=== PATIENT | female | born 1950 | race Caucasian/White ===

== ENCOUNTER → 2017-03-27 17:10 | Outpatient (CLI) | payer MEDICARE, BC, OTHER ==
[2013-10-16 10:24] VITALS: BMI 35.3
[~2017-03-27 17:10] MED LIST: CARAFATE1 G/10 ML PO; CRESTOR10 MG PO; ESTRACE1 MG PO; HYDROCODONE-APA1 TAB PO; NUCYNTA50 MG PO; PHENERGAN25 M1 PO; PROTONIX40 MG PO; SOMA350 MG PO; TOPROL XL25 MG PO; VITAMIN B-1000 MCG/M IM
== END | disposition home or self-care (01) ==
LOC: D.MAMMO 09:30
DX: Z12.31 Encounter for screening mammogram for malignant neoplasm of breast (principal)

== ENCOUNTER → 2018-04-02 18:42 | Outpatient (CLI) | payer MEDICARE, BC, OTHER ==
[2013-10-16 10:24] VITALS: BMI 35.3
== END | disposition home or self-care (01) ==
LOC: D.MAMMO 11:30
DX: Z12.31 Encounter for screening mammogram for malignant neoplasm of breast (principal)

== ENCOUNTER 2018-05-20 05:51 | Day surgery (SDC) | payer OTHER ==
[~2018-05-20] VITALS: Ht 170.2 cm; Wt 96.4 kg
--- NOTE | ~2018-05-20 | OP ---
PATIENT NAME: BEN REILLY MEDICAL RECORD: [id number] :48 LOCATION:[facility] ADMISSION DATE: SURGEON: RACHELE ANTHONY MD DATE OF OPERATION: 05/20/2018 PROCEDURE: EGD with balloon dilatation, EGD with biopsy. SCOPE: Olympus video gastroscope and a CRE Microvasive balloon from 45-60 Spanish. MEDICATIONS: Per TIVA anesthesia. The patient received 300 mg of propofol for this procedure, O2 4 liters. INDICATION FOR THE PROCEDURE: Unspecified anemia and dysphagia. FINDINGS AND DESCRIPTION OF PROCEDURE: Informed consent was given. The patient was made comfortable with the above medications. After reaching an adequate level of sedation by slow IV push, the patient was placed on her left side. The endoscope was then advanced under direct visualization through the posterior pharyngeal area and advanced to the distal esophagus. The patient did have some bilious-appearing fluid in the distal esophageal area, which was quickly suctioned, which is evidence that she does reflux. She did not have any of this fluid in her oropharyngeal area at the time of the procedure. She did have copious amount of secretions; however, which appears to be saliva. On entering the gastric pouch, very friable, slightly hemorrhagic mucosa was immediately noted and with insufflation of air, some slight amount of bleeding did occur. We did take a biopsy in this area and again we noted some heme as a result of obtaining the biopsy tissue. No ulcers or erosions were noted, although the patient as mentioned has hemorrhagic very friable tissue. We then advanced into the jejunum and mucosa was just minimally inflamed. The scope was then withdrawn. After the inspection part of the EGD was completed, we did place a CRE Microvasive balloon in the distal esophageal area to address the narrowing of this area and insufflated the balloon to 60-Spanish. We held it in place for 1 minute without any obvious complication. The scope was then withdrawn. IMPRESSION: 1. Distal esophageal stricture dilated to 60-Spanish without complication. 2. The patient was noted immediately. With advancement of the scope into the oropharyngeal area to have a copious amount of saliva. We did suction this 3 times during the procedure at the beginning after we dilated the patient and then at the end of the procedure. No bilious secretions were suctioned from the oropharyngeal area. 3. Erosive esophagitis, which is further evidence of the patient's refluxing problem. She does not appreciate this refluxing and I suspect it is due to the Protonix, which is decreasing acid production and increasing the pH. 4. Hemorrhagic bilious, very friable gastritis, biopsy taken within the gastric pouch looking for Helicobacter pylori. 5. Exploration of the jejunal tissue, which had minimal inflammation only. PLAN: 1. We are continuing Protonix as the patient certainly has a lot of friability and surface hemorrhage of the gastric mucosa; however, we would explain to the patient that this is a risk factor for both iron and calcium deficiency. 2. We will add Carafate and suggest that she make this into a slurry. She will need to avoid the a.m. dose as she is taking Synthroid and sucralfate/Carafate OPERATIVE REPORT [id number] MELBABEN Aponte does prevent the absorption of her thyroid medication. She will be instructed to take her Carafate at noon, dinnertime and bedtime. 3. We would prefer to use high dose famotidine or any other H2 eric over pantoprazole, but famotidine is known to decrease the absorption of tizanidine. Therefore, we will avoid from famotidine and stick with sucralfate at an adjusted dose and pantoprazole. 4. The patient is to follow reflux precautions stringently, both dietary and positional. She should avoid chocolate, tomato, citrus, caffeine, fatty food, peppermint. No tobacco, alcohol, have a heavier meal for breakfast and lunch and very minimal p.o. intake at dinnertime. She should sleep with the head of the bed elevated and not lay down at any time immediately after eating for up to 2 to 3 hours. TRANSINT:[id number] Voice Confirmation ID: [id number] DOCUMENT ID: [id number] RACHELE ANTHONY MD CC: SB MALDONADO DO [id number] DICTATION DATE: 05/20/18901 TECHNICIAN ANATOMIC PATHOLOGY: 05/20/18 113[address] [facility] 05/20/18 [id number] [place] [address]
[2018-05-20] MEDS ORDERED: ZANAFLEX4 MG PO (06:49)
[2018-05-20] MEDS ORDERED: ZOCOR10 MG PO (06:50)
[2018-05-20] MEDS ORDERED: SYNTHROID75 MCG PO (06:50)
[2018-05-20] MEDS ORDERED: TYLENOL PM1 TAB PO (06:50)
[2018-05-20] MEDS ORDERED: ACETAMINOPHEN500 M1 PO (06:51)
[2018-05-20 06:58] LABS: HEMATOCRIT 40.9 % (36.0-48.0); HEMOGLOBIN 13.5 g/dL (12-16); MCH 30.2 pg (26.0-34.0); MCV 91.5 fL (80.0-100.0); MEAN PLATELET VOLUME 9.4 fL (7.4-10.4); RBC 4.47 10x6/uL (4.00-5.40); RDW 13.6 % (11.5-14.5); WBC 6.5 10x3/uL (4.8-10.8)
[2018-05-20 07:02] VITALS: BP 118/74; Ht 170.2 cm; Wt 96.4 kg
--- NOTE | 2018-05-20 09:38 | NUR ---
DC INSTRUCTIONS GIVEN TO PT/FAMILY. STATE UNDERSTANDING. DC'D IV CATH FULLY INTACT.
--- NOTE | 2018-05-20 09:48 | NUR ---
PT LEFT UNIT VIA AT 3960
== END 2018-05-20 09:48 | disposition home or self-care (01) ==
LOC: D.OPS 05:51
PROVIDERS: Anesthesiology
DX: K22.10 Ulcer of esophagus without bleeding (principal); D64.9 Anemia, unspecified; K29.71 Gastritis, unspecified, with bleeding

== ENCOUNTER 2018-07-17 12:06 | Day surgery (SDC) | payer MEDICARE ==
[~2018-07-17] VITALS: Ht 167.6 cm; Wt 96.4 kg
--- NOTE | ~2018-07-17 | OP ---
PATIENT NAME: BEN REILLY MEDICAL RECORD: [id number] :48 LOCATION:[facility] ADMISSION DATE: SURGEON: CATALINA QUINTANILLA MD DATE OF OPERATION: 07/17/2018 PROCEDURE: Colonoscopy with biopsy. GAMING DEALER: Catalina Quintanilla MD SCOPE: Olympus video colonoscope. MEDICATIONS: Per TIVA anesthesia. The patient received 350 mg of propofol for this procedure, O2 4 liters. INDICATION FOR THE PROCEDURE: Anemia, change in bowel pattern, diarrhea and constipation, significant most likely for irritable bowel syndrome. FINDINGS: Informed consent was given. The patient was made comfortable with the above medications. After reaching an adequate level of sedation by slow IV push, the patient was placed on her left side. The rectal exam revealed good sphincter tone. No fissures or fistulas were appreciated. No external skin tags were seen. The colonoscope was advanced to the cecum where the ileocecal valve and appendiceal orifice were identified and photographed. On withdrawal of the scope, mucosa was carefully inspected. The patient had left-sided diverticulosis without diverticulitis, although a few diverticula were impacted with hard stool. No evidence of diverticulitis was noted, however. At 25 cm within the sigmoid colon, an area of inflammation was appreciated. Biopsies were obtained as well as documentation. Within the rectal vault, the patient had both internal and external hemorrhoids, which is the cause of the slight amount of bleeding that she noted while doing her preparation. Also seen was spasm on the left side of the colon significant for irritable bowel syndrome as well as bowel adhesions again in the pelvic area, which did add to the difficulty of this procedure. IMPRESSION: 1. Adhesions as mentioned above, mainly in the pelvic area. 2. Spasm on the left side of the colon significant for irritable bowel syndrome. 3. Inflammation within the distal sigmoid area at 25 cm. Biopsies obtained. We also took biopsies due to the history of diarrhea. 4. Cecum and ileocecal valve identified as well as the appendiceal orifice. 5. Left-sided diverticulosis without diverticulitis. PLAN: 1. No aspirin or anti-inflammatory drugs if possible for 14 days. 2. High fiber diet. 3. We will also caution the patient on eating nuts, seeds, and popcorn with her significant history of diverticulosis. No diverticulitis appreciated. For hemorrhoids, she can use [id number] cortisone cream 1% to the affected area b.i.d. and should avoid both diarrhea as well as constipation. We will provide her with some information on irritable bowel syndrome. TRANSINT:[id number] Voice Confirmation ID: [id number] DOCUMENT ID: [id number] OPERATIVE REPORT [id number] BEN REILLY BRENDA MD CC: SB MALDONADO DO [id number] DICTATION DATE: 07/17/[address] DRIVER: 07/17/18 [id number] [place] [address]
[~2018-07-17 12:06] MED LIST changes: +ACETAMINOPHEN500 M1 PO; +SYNTHROID75 MCG PO; +TYLENOL PM1 TAB PO; +ZANAFLEX4 MG PO; +ZOCOR10 MG PO
[2018-07-17 12:45] LABS: HEMOGLOBIN 14.1 g/dL (12-16); MCH 29.9 pg (26.0-34.0); MCHC 33.6 g/dL (31.0-37.0); MCV 89.2 fL (80.0-100.0); MEAN PLATELET VOLUME 9.1 fL (7.4-10.4); RBC 4.71 10x6/uL (4.00-5.40); RDW 13.4 % (11.5-14.5); WBC 5.6 10x3/uL (4.8-10.8)
[2018-07-17] MEDS ORDERED: CARAFATE1 G PO (14:18)
[2018-07-17 14:19] VITALS: BP 156/81; Ht 167.6 cm; Wt 96.4 kg
--- NOTE | 2018-07-17 15:45 | NUR ---
RIGHT HAND PIV DC'D WITH TIP INTACT. PATIENT AMBULATING AROUND ROOM WITHOUT DIZZINESS AND DRESSING IN PERSONAL CLOTHING INDEPENDENTLY. 1550 DISCHARGED HOME VIA WHEELCHAIR TO PRIVATE VEHICLE WITH FAMILY MEMBER
== END 2018-07-17 15:50 | disposition home or self-care (01) ==
LOC: D.OPS 12:06
PROVIDERS: ATTEND Internal Medicine Gastroenterology
DX: K66.0 Peritoneal adhesions (postprocedural) (postinfection) (principal); K58.1 Irritable bowel syndrome with constipation; K58.0 Irritable bowel syndrome with diarrhea; K57.30 Diverticulosis of large intestine without perforation or abscess without bleeding; K64.8 Other hemorrhoids; K64.4 Residual hemorrhoidal skin tags; Z01.812 Encounter for preprocedural laboratory examination

== ENCOUNTER 2019-04-20 08:00 | Outpatient (CLI) | payer MEDICARE ==
[2018-07-17 14:19] VITALS: BMI 34.3
[~2019-04-20 08:00] MED LIST changes: +CARAFATE1 G PO
== END 2019-04-20 23:59 | disposition home or self-care (01) ==
LOC: D.MAMMO 08:00
PROVIDERS: ATTEND Family Medicine
DX: Z12.31 Encounter for screening mammogram for malignant neoplasm of breast (principal)